=== PATIENT | female | born 1960 | race Caucasian/White ===

== ENCOUNTER → 2016-05-03 | Outpatient (CLI) | payer OTHER ==
--- NOTE | 2016-05-03 08:34 | US ---
EXAMINATION TYPE: US abdomen complete DATE OF EXAM: 05/03/2016 7:16 AM COMPARISON: NONE CLINICAL HISTORY: R10.13 EPIGASTRIC PAIN,R12 HEARTBURN. Pain x 8 months EXAM MEASUREMENTS: Liver Length: 17.1 cm Gallbladder Wall: 0.2 cm CBD: 0.5 cm Spleen: 9.1 cm Right Kidney: 10.3 x 4.9 x 4.8 cm Left Kidney: 10.0 x 3.8 x 4.8 cm Pancreas: wnl Liver: difficult to penetrate Gallbladder: wnl Evidence for sonographic Arce's sign: no CBD: wnl Spleen: wnl Right Kidney: wnl Left Kidney: wnl Upper IVC: wnl Abd Aorta: wnl The pancreas is poorly visualized. Liver is mildly prominent and echogenic and likely fatty infiltrat ed. IMPRESSION: Mild hepatomegaly and fatty infiltration of the liver.
== END | disposition home or self-care (01) ==
LOC: RADUSWWP 06:54
PROVIDERS: ATTEND Family Medicine
DX: K76.0 Fatty (change of) liver, not elsewhere classified (principal); R16.0 Hepatomegaly, not elsewhere classified; R12 Heartburn
CPT/HCPCS: 76700

== ENCOUNTER → 2016-08-16 | Outpatient (CLI) | payer OTHER ==
--- NOTE | 2016-08-16 16:24 | MR ---
EXAMINATION TYPE: MR brain wo con DATE OF EXAM: 08/16/2016 4:10 PM COMPARISON: NONE HISTORY: Memory loss Multiplanar and multispin-echo imaging of the brain was performed . The ventricles, basal cisterns and sulci overlying the cerebral convexities are within normal limits. There is no evidence for midline shift or mass effect. Acute intracranial hemorrhage or extra-axial collection is not evident. Scattered small nonspecific foci of increased signal within the deep and subcortical white matter of both cerebral hemispheres. Differential diagnostic possibilities include demyelinating disease, chron ic migraine headaches, vasculitis as well as sequela of Lyme's disease to name a few. Correlate clini jose luis. No acute edema is identified. The paranasal sinuses and mastoid air cells are well-aerated. IMPRESSION: Scattered small nonspecific foci of increased signal within the deep and subcortical white matter of both cerebral hemispheres. Differential diagnostic possibilities include demyelinating disease, chron ic migraine headaches, vasculitis as well as sequela of Lyme's disease to name a few. Correlate clini jose luis.
== END | disposition home or self-care (01) ==
LOC: RADMRIMAIN 15:25
PROVIDERS: ATTEND Internal Medicine
DX: R90.89 Other abnormal findings on diagnostic imaging of central nervous system (principal); F09 Unspecified mental disorder due to known physiological condition
CPT/HCPCS: 70551

== ENCOUNTER → 2017-06-30 | Outpatient (CLI) | payer OTHER ==
--- NOTE | 2017-06-30 17:34 | US ---
EXAMINATION TYPE: US carotid duplex BILAT DATE OF EXAM: 06/30/2017 COMPARISON: NONE CLINICAL HISTORY: F03.90 DEMENTIA. Memory loss EXAM MEASUREMENTS: RIGHT: Peak Systolic Velocity (PSV) cm/sec ----- Right CCA: 68.6 ----- Right ICA: 63.1 ----- Right ECA: 77.3 ICA/CCA ratio: 0.9 RIGHT: End Diastole cm/sec ----- Right CCA: 21.5 ----- Right ICA: 29.6 ----- Right ECA: 25.8 LEFT: Peak Systolic Velocity (PSV) cm/sec ----- Left CCA: 72.9 ----- Left ICA: 73.8 ----- Left ECA: 85.1 ICA/CCA ratio: 1.0 LEFT: End Diastole cm/sec ----- Left CCA: 21.5 ----- Left ICA: 27.6 ----- Left ECA: 25.0 VERTEBRALS (direction of flow): Right Vertebral: Antegrade Left Vertebral: Antegrade Rhythm: Normal Mild plaque bilateral bifurcations. No evidence of increased velocities or significant stenosis. IMPRESSION: There is antegrade flow in the vertebral arteries. The images and measurements suggest l ess than 20% stenosis in both internal carotid arteries. Criteria for Assigning % of Stenosis / Diameter reduction (Estimation based on the indirect measurements of the internal carotid artery velocities (ICA PSV). 1. Normal (no stenosis)=ICA PSV < 125 cm/s: ratio < 2.0: ICA EDV<40 cm/s. 2. Less than 50% stenosis=ICA PSV < 125 cm/s: ratio < 2.0: ICA EDV<40 cm/s. 3. 50 to 69% stenosis=ICA PSV of 125 to 230 cm/s: ration 2.0 ? 4.0: ICA EDV 40-100 cm/s. 4. Greater than 70% stenosis to near occlusion= ICA PSV > 230 cm/s: ratio > 4.0: ICA EDV > 100 cm/s. 5. Near occlusion= ICA PSV velocities may be low or undetectable: variable ratio and ICA EDV. 6. Total occlusion=unable to detect flow.
== END | disposition home or self-care (01) ==
LOC: RADUSWWP 16:48
PROVIDERS: ATTEND Family Medicine
DX: F03.90 Unspecified dementia, unspecified severity, without behavioral disturbance, psychotic disturbance, mood disturbance, and anxiety (principal)
CPT/HCPCS: 93880

== ENCOUNTER → 2018-09-10 | Outpatient (CLI) | payer OTHER ==
--- NOTE | 2018-09-10 15:27 | MR ---
EXAMINATION TYPE: MR brain wo/w con DATE OF EXAM: 09/10/2018 COMPARISON: CT brain dated 06/08/2015 HISTORY: Other amnesia / Dementia TECHNIQUE: Multiplanar, multisequence images of the brain and brainstem is performed without and with IV contras t, utilizing 7.5 mL intravenous Gadavist . FINDINGS: Diffusion weighted images demonstrate no evidence of a recent infarct or other diffusion ab normality. There is no extra-axial fluid collection. Mild burden nonspecific white matter change is seen as scattered foci of T2/FLAIR hyperintensity within the subcortical and periventricular white ma tter. The largest is seen in the right posterior parietal lobe measuring 6 x 4 mm. The ventricular sy stem and cisternal spaces are normal in size and appearance for this patient age. The brain volume i s age appropriate. Midline structures demonstrate normal morphology. 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 The craniocervical junction appears within normal limits. Post contrast images demonstrate no abnormal enhancement. The dural venous sinuses appear patent. The visualized sinuses are clear and the globes are intact. IMPRESSION: 1. No acute infarct, midline shift or mass effect. 2. No abnormal intracranial enhancement. 3. Mild burden nonspecific white matter change, likely on the basis of chronic microangiopathy with n umerous punctate foci predominating in the subcortical white matter. 4. Cerebral atrophy is not out of proportion for the patient's age in this patient with dementia.
== END | disposition home or self-care (01) ==
LOC: RADMRIMAIN 12:01
PROVIDERS: ATTEND Family Medicine
DX: R90.82 White matter disease, unspecified (principal); G31.9 Degenerative disease of nervous system, unspecified; F03.90 Unspecified dementia, unspecified severity, without behavioral disturbance, psychotic disturbance, mood disturbance, and anxiety
CPT/HCPCS: 70553; A9585

== ENCOUNTER → 2019-01-26 | Outpatient (CLI) | payer OTHER ==
--- NOTE | 2019-01-26 19:52 | CONS ---
CONSULTATION REASON FOR CONSULTATION: Loss of memory. This patient is 58, and despite her young age she is having issues with memory. This is currently being investigated by her primary care physician. The patient was started on Namenda. During a recent conversation she was told that her sleep quality was not the best, and the patient was referred to me for a sleep evaluation. Note that she has no headaches, no loss of consciousness, no syncope, no focal neurological deficit, no history of stroke, no history of Parkinson's, no history of head trauma, substance abuse, falls, ataxia or weakness. It seems that the memory loss is mainly towards recent information. In terms of her sleep, she goes to bed around 10 p.m., wakes up at 6 a.m. in the morning. She does snore. She feels that she is sleeping around 5 to 8 hours per night. At times she is under quite a bit of stress and she cannot initiate her sleep; however, most of the time she is able to generate a good 6 hours of sleep. Her weight is stable at 178 and currently is down to 173. No sleep fragmentation. No history of any falling asleep while driving or performing day-to-day activity. No history of any motor vehicle accident because of feeling drowsy or sleepy. No sleepwalking. No sleeptalking. No sleep paralysis. No hallucinations or cataplexy. PAST MEDICAL HISTORY: 1. Loss of memory. 2. Diabetes. 3. Depression. 4. Hyperlipidemia. 5. Hypertension. 6. Acid reflux. SURGICAL HISTORY: Surgical history includes partial hysterectomy. DRUG ALLERGIES: NOT KNOWN. OUTPATIENT MEDICATION LIST: Outpatient medication list includes: 1. Trulicity injections once a week. 2. Zantac 300 mg p.o. once a day. 3. Metformin 1 gram twice a day. 4. Lipitor 40 mg p.o. daily. 5. Lisinopril/hydrochlorothiazide 20/12.5 one tablet a day. 6. Aspirin 81 mg p.o. daily. 7. Pristiq 100 mg p.o. daily. 8. Prilosec 20 mg p.o. daily. 9. Namenda 10 mg p.o. daily. 10.Trulicity 0.75 mg once a week. 11.Lipitor 40 mg p.o. daily. REVIEW OF SYSTEMS: Fourteen-point review of systems was done. Positive findings were all mentioned above in the history of present illness. Otherwise negative. SOCIAL HISTORY: The patient is a nonsmoker. No history of alcoholism. No history of IV drugs. FAMILY HISTORY: Negative for sleep apnea. Her has JELLY. PHYSICAL EXAMINATION: VITAL SIGNS: BP is 115/81, pulse 105, respirations 16, temperature 98.3, saturation 95% on room air. Height is 5 feet 3 inches, weight 173. Neck size is 14-3/4 inches. Princess Anne score is 2. BMI 30.6. GENERAL APPEARANCE: Calm, comfortable. HEAD: Atraumatic, normocephalic. NECK: Supple. No JVD. No goiter or neck masses. Mallampati class III. LUNGS: Clear to auscultation. HEART: Heart sounds are regular rate and rhythm. Normal S1, S2. No S3, S4. No murmurs. ABDOMEN: Soft, nontender. No organomegaly. EXTREMITIES: No edema. No cyanosis or clubbing. NEUROLOGIC: Awake and alert. There is no focal neurological deficit at this point. Mini mental status exam was not done. IMPRESSION: 1. Memory loss. Exact cause is not clear. Rule out underlying primary neurological disorder. Unlikely to be related to a sleep disorder, although it is worthwhile investigating this patient for any underlying sleep disease by a routine polysomnogram. 2. Diabetes. 3. Hypertension. 4. Hyperlipidemia. 5. History of depression. 6. Acid reflux. 7. Snoring. PLAN: 1. Encourage weight loss. 2. Proceed with a polysomnogram to identify any abnormalities in sleep quality that could contribute to increased tiredness and sleepiness and full concentration and memory loss. My overall suspicion is quite low, and I think the patient may be having an underlying primary neurological disorder contributing to her loss of memory. I would suggest doing a neurologic evaluation in parallel with the sleep evaluation. MMODL / IJN: [id number] /
== END | disposition home or self-care (01) ==
LOC: SLEEP 13:08
PROVIDERS: ATTEND Internal Medicine Critical Care Medicine
DX: R41.3 Other amnesia (principal); E11.9 Type 2 diabetes mellitus without complications; I10 Essential (primary) hypertension; E78.5 Hyperlipidemia, unspecified; K21.9 Gastro-esophageal reflux disease without esophagitis; R06.83 Snoring; Z86.59 Personal history of other mental and behavioral disorders; Z90.711 Acquired absence of uterus with remaining cervical stump; Z79.84 Long term (current) use of oral hypoglycemic drugs; Z79.82 Long term (current) use of aspirin; Z79.899 Other long term (current) drug therapy
CPT/HCPCS: 99211

== ENCOUNTER → 2019-02-19 | Outpatient (CLI) | payer OTHER ==
--- NOTE | 2019-02-19 15:11 | US ---
EXAMINATION TYPE: US abdomen complete DATE OF EXAM: 02/19/2019 COMPARISON: CT July 24, 2015. Abdominal ultrasound 2017 CLINICAL HISTORY: R12 HeartburnFatty liver.. EXAM MEASUREMENTS: Liver Length: 17.8 cm Gallbladder Wall: .2 cm CBD: .4 cm Spleen: 8.4 cm Right Kidney: 9.6 x 4.1 x 4.2 cm Left Kidney: 9.6 x 4.8 x 4.3 cm Pancreas: Tail obscured by overlying bowel gas Liver: Increased attenuation upper limits. Gallbladder: wnl Evidence for sonographic Arce's sign: No CBD: wnl Spleen: wnl Right Kidney: wnl Left Kidney: wnl Upper IVC: wnl Abd Aorta: wnl The visualized liver remains heterogeneously hypoechoic. Evaluation for focal masses suboptimal due to the heterogeneity. The intrahepatic portion of the IVC and proximal abdominal aorta are within nor mal limits. There is no evidence of cholelithiasis. Common bile duct is unremarkable. The visualiz ed portions of the pancreas are homogenous. The spleen is unremarkable. Kidneys are symmetric and f ree of hydronephrosis. No renal lesions are seen. IMPRESSION: Fatty infiltration of liver redemonstrated.
== END | disposition home or self-care (01) ==
LOC: RADUSWWP 14:15
PROVIDERS: ATTEND Family Medicine
DX: K76.0 Fatty (change of) liver, not elsewhere classified (principal)
CPT/HCPCS: 76700

== ENCOUNTER → 2019-09-06 | Outpatient (CLI) | payer OTHER ==
--- NOTE | 2019-09-10 14:27 | MM ---
Reason for exam: screening (asymptomatic). Last mammogram was performed 7 years and 1 month ago. History: Patient is postmenopausal. Physical Findings: A clinical breast exam by your physician is recommended on an annual basis and results should be correlated with mammographic findings. MG 3D Screening Mammo W/Cad Bilateral CC and MLO view(s) were taken. Prior study comparison: July 22, 2012, bilateral digital screening mammo w/CAD. November 06, 2010, mammogram, performed at [facility]. The breast tissue is heterogeneously dense. This may lower the sensitivity of mammography. There is no discrete abnormality. No significant changes when compared with prior studies. ASSESSMENT: Negative, BI-RAD 1 RECOMMENDATION: Routine screening mammogram of both breasts in 1 year.
== END | disposition home or self-care (01) ==
LOC: RADMAMWWP 08:21
PROVIDERS: ATTEND Family Medicine
DX: Z12.31 Encounter for screening mammogram for malignant neoplasm of breast (principal)
CPT/HCPCS: 77063; 77067

== ENCOUNTER → 2020-06-15 | Outpatient (CLI) | payer OTHER ==
[2020-06-15 14:55] LABS: Basophils # (A) 0.04 X 10*3/uL (0.00-0.10); Basophils % (A) 0.7 %; Eosinophils # (A) 0.14 X 10*3/uL (0.04-0.35); Eosinophils % (A) 2.3 %; HCT 41.1 % (37.2-46.3); HGB 13.5 g/dL (12.0-15.0); Lymphocytes # (A) 2.48 X 10*3/uL (0.90-5.00); MCH 29.9 pg (27.0-32.0); MCHC 32.8 g/dL (32.0-37.0); MCV 90.9 fL (80.0-97.0); Mean Platelet Volume 12.2 fL (9.5-12.2); Monocytes # (A) 0.43 X 10*3/uL (0.20-1.00); Monocytes % (A) 7.1 %; Neutrophils # (A) 2.94 X 10*3/uL (1.80-7.70); Neutrophils % (A) 48.6 %; Platelet Count 150 X 10*3/uL (140-440); RBC 4.52 X 10*6/uL (4.10-5.20); RDW 12.7 % (11.5-14.5); WBC 6.05 X 10*3/uL (4.50-10.00)
[2020-06-15 19:20] LABS: Hemoglobin A1C 6.7 % (4.0-6.0)
[2020-06-15 23:37] LABS: T4, Free (Free Thyroxine) 0.9 ng/dL (0.80-1.80)
[2020-06-16 00:07] LABS: African American GFR (CKD) 93.5 (60.0-200.0); Albumin 4.3 g/dL (3.80-4.90); Albumin/Globulin Ratio 2.26 (1.60-3.17); Anion Gap 13.3 mmol/L (4.00-12.00); BUN/Creat Ratio 17.5 Ratio (12.00-20.00); Calcium 9.5 mg/dL (8.7-10.3); Carbon Dioxide 24.7 mmol/L (21.6-31.8); Chol/HDL Ratio 2.47; Globulin 1.9 g/dL (1.6-3.3); LDL Cholesterol,Calculated 63.8 mg/dL (0.0-131.0); Non-African American GFR(CKD) 80.7 (60.0-200.0); Total Bilirubin 0.7 mg/dL (0.2-1.2); Total Protein 6.2 g/dL (6.2-8.2); VLDL Calculation 27.2 mg/dL (5.00-40.00)
== END | disposition home or self-care (01) ==
LOC: LABWHC1 09:06
PROVIDERS: ATTEND Family Medicine
DX: I10 Essential (primary) hypertension (principal); E56.9 Vitamin deficiency, unspecified; E61.0 Copper deficiency; G62.9 Polyneuropathy, unspecified; E11.9 Type 2 diabetes mellitus without complications; J44.9 Chronic obstructive pulmonary disease, unspecified; K21.9 Gastro-esophageal reflux disease without esophagitis; G47.30 Sleep apnea, unspecified; R41.3 Other amnesia
CPT/HCPCS: 36415; 80053; 80061; 82306; 82525; 82550; 82607; 83036; 84425; 84439; 84443; 85025

== ENCOUNTER → 2020-06-21 | Outpatient (CLI) | payer OTHER ==
--- NOTE | 2020-06-21 12:03 | CT ---
EXAMINATION TYPE: CT brain wo/w con DATE OF EXAM: 06/21/2020 COMPARISON: 06/08/2015 INDICATION: Memory loss. DLP: 2262 mGycm, Automated exposure control for dose reduction was used. CONTRAST: None CT of the brain is performed utilizing 3 mm thick sections through the posterior fossa and 3 mm thick sections through the remaining calvarium. Study is performed within 24 hours of arrival to the hosp [facility]. No abnormal hyperdensity is present to suggest an acute intracranial hemorrhage. No mass lesion is evident. No acute infarcts are evident. Ventricles and sulci are appropriate for the patient age. Paranasal sinuses and mastoid air cells within the [id number] are clear. No abnormal enhancement is evident. IMPRESSIONS: 1. Normal pre and postcontrast brain
== END | disposition home or self-care (01) ==
LOC: RADCTMAIN 11:07
PROVIDERS: ATTEND Family Medicine
DX: R41.3 Other amnesia (principal)
CPT/HCPCS: 70470; Q9967

== ENCOUNTER → 2020-12-13 | Outpatient (CLI) | payer OTHER ==
--- NOTE | 2020-12-15 14:04 | MM ---
Reason for exam: screening (asymptomatic). Last mammogram was performed 1 year and 3 months ago. History: Patient is postmenopausal. Physical Findings: A clinical breast exam by your physician is recommended on an annual basis and results should be correlated with mammographic findings. MG 3D Screening Mammo W/Cad Bilateral CC and MLO view(s) were taken. Prior study comparison: September 06, 2019, bilateral MG 3d screening mammo w/cad. July 22, 2012, bilateral digital screening mammo w/CAD. The breast tissue is heterogeneously dense. This may lower the sensitivity of mammography. There are benign appearing round calcifications bilaterally. There is no discrete abnormality. ASSESSMENT: Negative, BI-RAD 1 RECOMMENDATION: Routine screening mammogram of both breasts in 1 year.
== END | disposition home or self-care (01) ==
LOC: RADMAMWWP 11:19
PROVIDERS: ATTEND Internal Medicine Geriatric Medicine
DX: Z12.31 Encounter for screening mammogram for malignant neoplasm of breast (principal)
CPT/HCPCS: 77063; 77067

== ENCOUNTER → 2021-12-14 | Outpatient (CLI) | payer OTHER ==
--- NOTE | 2021-12-14 10:34 | BD ---
EXAMINATION TYPE: Axial Bone Density DATE OF EXAM: 12/14/2021 COMPARISON: 07-22-2012 CLINICAL HISTORY: 61 years year old Female. ICD-10 CODE: Z78.0 MENOPAUSAL STATE N95.1 Post menopausa l symptoms Height: 63.5IN Weight: 205LB FRAX RISK QUESTIONS: Secondary Osteoporosis: RISK FACTORS HISTORY OF: Postmenopausal woman: YES MEDICATIONS: Additional Medications: DIABETES MEDS, BP MEDS, MULTIVITAMIN Additional History: PT STATES SHE HAS MEMORY ISSUES AND ANSWERED QUESTIONS BEST POSSIBLE EXAM MEASUREMENTS: Bone mineral densitometry was performed using the [email or web address] System. Bone mineral density as measured about the Lumbar spine is: ----- L1-L4(G/cm2): 1.400 T Score Values are as follows: ----- L1: 1.0 ----- L2: 0.9 ----- L3: 1.6 ----- L4: 3.3 ----- L1-L4: 1.8 Bone mineral density has: Decreased -5.6% since study of: 07-22-12 Bone mineral density about the R hip (g/cm2): 1.133 Bone mineral density about the L hip (g/cm2): 1.171 T Score values are as follows: -----R Neck: -0.3 -----L Neck: 0.3 -----R Total: 1.0 -----L Total: 1.3 Bone mineral density has: Decreased 6.3% since study of: 07-22-12 FRAX%s: The graph provided illustrates a 6.1% chance for a major osteoporotic fx and a 0.2% chance fo r the hips probability for fx in 10 years time. IMPRESSION: Normal (Values between +1 and -1 indicate normal bone mass). Consider repeating this study in 5 year s or sooner if there is some new clinical indication. NOTE: T-SCORE=SD OF THE YOUNG ADULT MEAN.
--- NOTE | 2021-12-17 08:57 | MM ---
Reason for Exam: Screening (asymptomatic). Last screening mammogram was performed 12 month(s) ago. Patient History: Menarche at age 12. First Full-Term at age 18. Hysterectomy at age 41. Postmenopausal. Risk Values: Estela 5 year model risk: 1.1%. NCI Lifetime model risk: 5.2%. Prior Study Comparison: 07/22/2012 Bilateral Screening Mammogram, [facility]. 09/06/2019 Bilateral Screening Mammogram, [facility]. 12/13/2020 Bilateral Screening Mammogram, [facility]. Tissue Density: The breast tissue is heterogeneously dense. This may lower the sensitivity of mammography. Findings: Analyzed By CAD. There is no suspicious group of microcalcifications or new suspicious mass in either breast. Benign round appearing calcifications bilaterally. No significant change from prior exams. Overall Assessment: Benign, BI-RAD 2 Management: Screening Mammogram of both breasts in 1 year. A clinical breast exam by your physician is recommended on an annual basis and results should be correlated with mammographic findings. Electronically signed and approved by: Isidro Jimenez D.O.
== END | disposition home or self-care (01) ==
LOC: RADMAMWWP 09:34
PROVIDERS: ATTEND Family Medicine
DX: Z12.31 Encounter for screening mammogram for malignant neoplasm of breast (principal); Z78.0 Asymptomatic menopausal state
CPT/HCPCS: 77063; 77067; 77080

== ENCOUNTER → 2022-05-03 | Outpatient (CLI) | payer OTHER ==
--- NOTE | 2022-05-04 06:09 | MR ---
EXAMINATION TYPE: MR knee RT wo con DATE OF EXAM: 05/03/2022 COMPARISON: None HISTORY: Fall, internal derangement of right knee and knee pain Multiplanar multiecho imaging of the right knee performed with no contrast. The anterior and posterior cruciate ligaments are intact. There is a moderate knee joint effusion. Th ere is increased signal in the posterior horn medial meniscus extending to the superior surface. Ther e is some narrowing of the medial joint space. There is medial displacement of the medial meniscus. T here is subcutaneous edema around the knee. No fracture seen. No evidence of focal bone destruction. There is evidence of a 1 cm minimal bone bruise at the base of the tibial spines. There is mild spurr ing of the femoral and tibial condyles. The collateral ligaments are intact. 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 There is a vertical and horizontal tear in the posterior h orn medial meniscus. Knee joint effusion. Small bone bruise at the base of the tibial spines.
== END | disposition home or self-care (01) ==
LOC: RADMRIMAIN 18:51
PROVIDERS: ATTEND Family Medicine
DX: M17.11 Unilateral primary osteoarthritis, right knee (principal); M23.221 Derangement of posterior horn of medial meniscus due to old tear or injury, right knee; M25.461 Effusion, right knee

== ENCOUNTER → 2022-09-11 | Outpatient (CLI) | payer OTHER ==
--- NOTE | 2022-09-11 16:45 | P.SLEEP ---
History of Present Illness DATE: 09/11/2022 CONSULTATION/NEW PATIENT EVALUATION HISTORY OF PRESENT ILLNESS/SLEEP-WAKE EVALUATION: 62-year-old lady had been evaluated in the sleep center for obstructive sleep apnea hypopnea syndrome. Patient has history of mild obstructive sleep apnea hypopnea syndrome diagnosed in February 2019. For different reason at that time patient did not receive treatment with CPAP. SLEEP SCHEDULE: Usually sleep schedule 910 PM until 6-7 AM 7 days a week. FALLING ASLEEP: Usually no problems with falling asleep. DURING SLEEP: Patient has loud snoring and witnessed episodes of stop breathing during the sleep. Patient wakes up from sleep with her grinding teeth, heartburn. Positive history of sleep talking. No history of hypnogogical hallucinations, sleep paralysis, or cataplexy. DURING THE DAY/WAKE STATE: Patient has difficulties to place attention during the day, has problems with memory, concentration, irritability, depression. Gilmer sleepiness scale is 2. Usually patient doesn't take naps, may take 1 rest period uring the day. PAST MEDICAL HISTORY: Hypertension, hyperlipidemia, asthma, acid reflux, diabetes mellitus. PAST SURGICAL HISTORY: Partial hysterectomy, right ankle surgery. MEDICATIONS: Losartan/hydrochlorothiazide 100/12.5 mg once a day, does on 15 mg once a day, bupropion 150 mg once a day, metformin 500 mg twice a day, donepezil 10 mg once a day. SOCIAL HISTORY: Very short smoking in the past, alcohol consumption none at the present time. FAMILY HISTORY: Hypertension, hyperlipidemia, diabetes, ulcers. REVIEW OF SYSTEMS: Loud snoring, awakenings from sleep. No fevers. No double vision. No recent chest pain. No shortness of breath. No abdominal pain. No bleeding episodes. No blood in urine. No seizure episodes. PHYSICAL EXAMINATION: GENERAL: A pleasant patient without any distress. VITAL SIGNS: BP 128/82 , HR 86 , RR 18 , weight 191.0 pounds, height 5 foot 2.5 inches, body mass index 34.3 . HEENT: PERRLA, EOMI. Evaluation of oropharynx showed tongue protrudes midline, low position of soft palate Mallampati 4. NECK: Supple. No JVD. Thyroid is not palpable. 15-1/3 inches in circumference. LUNGS: Clear to percussion and to auscultation. Good air exchange. No wheezing or rhonchi. HEART: S1, S2 regular. No murmurs, gallops or rubs. ABDOMEN: Soft and nontender. Bowel sounds are present. No organomegaly appreciated. EXTREMITIES: No clubbing or cyanosis. DETAIL MAKER AND FITTER: Awake, alert, and oriented x3. Cranial nerves 2 to 7 intact. There is no f asciculation or atrophy noted. No focal deficits observed. ASSESSMENT: 1. Loud snoring, awakenings from sleep, extremely low position of soft palate, history of obstructive sleep apnea hypopnea syndrome in the past. Obstructive sleep apnea hypopnea syndrome. 2. Mild obesity BMI 34.3. 3. Hypertension. 4. Diabetes mellitus. 5 hyperlipidemia. 6 . Acid reflux. 7. Memory problems. 8. Status post partial hysterectomy. PLAN: 1. Polysomnography for evaluation of patient's breathing during sleep. 2. CPAP/BiPAP titration if sleep study confirms obstructive sleep apnea- hypopnea syndrome. 3. Preferable position during sleep on the side. 4. No driving if patient feels any sleepiness. Patient is aware of civil and criminal liability for unsafe driving. 5. Sleep hygiene with regular sleep time for at least 7.5-8 hours. 6. Watching and losing weight. Thank you very much for referring this patient for consultation. Sincerely, Keaton Willams MD, PhD, FAASM. Diplomat of [place] [employer], Sleep Medicine Board by [place] [employer] [place] [employer] Poison Information Specialist of [facility] [place] Past Medical History Past Medical History: Asthma, Diabetes Mellitus, GERD/Reflux, Hyperlipidemia, Hypertension Additional Past Medical History / Comment(s): NIDDM type II, seasonal asthma, UTIs. History of Any Multi-Drug Resistant Organisms: None Reported Past Surgical History: Hysterectomy, Tonsillectomy Additional Past Surgical History / Comment(s): Bilateral cataract removals with lens implants. Past Anesthesia/Blood Transfusion Reactions: No Reported Reaction Additional Past Anesthesia/Blood Transfusion Reaction / Comment(s): Pt has never received blood. Past Psychological History: Anxiety, Depression Additional Psychological History / Comment(s): Pt states her medication for her anxiety/depression are working well. She is independent. She drives. Past Alcohol Use History: None Reported Additional Past Alcohol Use History / Comment(s): Pt states she smoked for 1 yr. from [id number]. Past Drug Use History: None Reported - Past Family History Father Family Medical History: Dementia Additional Family Medical History / Comment(s): Father is alive and is 73 or 74yrs old. Medications and Allergies Home Medications Medication Instructions Recorded Confirmed Type Aspirin EC [Ecotrin Low Dose] 81 mg PO HS 06/08/15 07/21/15 History Atorvastatin [Lipitor] 40 mg PO HS 06/08/15 07/21/15 History Calcium Carbonate/Vitamin D3 1 tab PO DAILY 06/08/15 07/21/15 History [Calcium 600-Vit D3 400 Tablet] FLUoxetine HCL [PROzac] 60 mg PO DAILY 06/08/15 07/21/15 History metFORMIN HCL [metFORMIN HCL ER] 1,000 mg PO AC-BID 06/08/15 07/21/15 History sitaGLIPtin [Januvia] 50 mg PO DAILY 06/08/15 07/21/15 History Lisinopril-Hctz 20-12.5 mg 1 tab PO DAILY #0 07/21/15 07/21/15 Rx [Zestoretic 20-12.5] Omeprazole [PriLOSEC] 40 mg PO AC-BRKFST #14 cap 07/21/15 Rx Allergies Allergy/AdvReac Type Severity Reaction Status Date / Time No Known Allergies Allergy Verified 07/21/15 12:03 Sleep Note - Sleep Note Sleep Note: Temperature: Pulse Rate: Respiratory Rate: Blood Pressure: SpO2: Height: Weight: BMI: Neck Circumference:
== END ==
LOC: 3 N SLEEP 14:59
PROVIDERS: ATTEND Internal Medicine
DX: G47.33 Obstructive sleep apnea (adult) (pediatric) (principal); E66.9 Obesity, unspecified; E11.9 Type 2 diabetes mellitus without complications; E78.5 Hyperlipidemia, unspecified; K21.9 Gastro-esophageal reflux disease without esophagitis; R41.3 Other amnesia; J45.909 Unspecified asthma, uncomplicated; Z87.891 Personal history of nicotine dependence; Z90.710 Acquired absence of both cervix and uterus; Z68.34 Body mass index [BMI] 34.0-34.9, adult; Z79.84 Long term (current) use of oral hypoglycemic drugs; Z79.899 Other long term (current) drug therapy
CPT/HCPCS: 99211

== ENCOUNTER 2023-02-04 19:30 | Outpatient (CLI) | payer OTHER ==
--- NOTE | 2023-02-12 16:39 | P.PCN ---
Description of Procedure: CLINICAL: Titration with positive air pressure has been done for correction of respiratory abnormalities during sleep. DESCRIPTION OF PROCEDURE: The standard montage for clinical polysomnography included the electroencephalogram, the electrocardiogram, the mentalis surface electromyography and Lead II cardiography. The respiratory battery consisted of measurements of nasal /buccal air flow, pressure transducer measurements from the nose, thoracic and /or abdominal effort and intercostal surface electromyography. Video monitoring has been done to check for any parasomnia events. Nocturnal oxyhemoglobin saturations were obtained by finger oximetry. Step-glaser titration with positive airway pressure was utilized to control respiratory events. Raw data of sleep recording has been reviewed and is adequate. RESULTS: Sleep efficiency was close to normal 86.7 %. Latency to sleep onset was normal 18.5 minutes.]. Sleep architecture showed stage N1 was slightly increased to 8.5 %, Delta sleep was absent 0 %, REM sleep was practically absent 0.2 %. Heart rate was minimum 70 BPM, maximum 79 BPM, average 74 BPM. EMG showed 0 periodic limb movements per hour. PAP titration have been done with CPAP up to the pressure 14 cm H2O. Patient had problems with CPAP, switched to BPAP. BPAP titrated up to 16/12 cm H2O. The best results were at the pressure 16/12 cm H2O. Apnea hypopnea index reduced to 0. IMPRESSION: 1. Obstructive sleep apnea hypopnea syndrome mostly on controle with BPAP treatment. 2. No significant periodic limb movements have been documented. Please see other impressions from consultation. PLAN: 1. The patient will have treatment with AutoBPAP equipment with maximal inspiratory pressure 17, minimal expiratory pressure 6, pressure-support 4 cm H2O and should use it every night for the whole night. 2. Watching and losing weight. 3. Sleep hygiene with regular time in bed for at least 8 hours. 4. No driving if feeling any sleepiness. 5. I will see the patient for follow up visit to explain the results of the test, recommendations, check compliance with treatment and make any necessary adjustment related to mask fitting, pressure and humidification. Thank you very much for allowing me to participate in the management of your patient. Sincerely, Keaton Willams MD, PhD, FAASM Diplomat of [place] [employer] Sleep Medicine Board of [place] [employer] P[employer] of [facility] [place]
== END 2023-02-05 05:55 | disposition home or self-care (01) ==
LOC: 3 N SLEEP 19:30
PROVIDERS: ATTEND Internal Medicine
DX: G47.33 Obstructive sleep apnea (adult) (pediatric) (principal); Z87.891 Personal history of nicotine dependence
CPT/HCPCS: 95811

== ENCOUNTER → 2023-04-23 | Outpatient (CLI) | payer OTHER ==
[2023-04-23 12:18] VITALS: BP 118/75; PULSE 95; RESP 16; TEMP 98.3
--- NOTE | 2023-04-23 12:30 | P.PN ---
Subjective DATE: 04/23/2023 FOLLOW UP VISIT. Patient with obstructive sleep apnea hypopnea syndrome return to sleep center for follow-up visit. Recently patient had sleep study which documented obstructive sleep apnea hypopnea syndrome. Patient was initiated on PAP therapy and today is first visit after treatment was started. Patient was able to use PAP equipment every night for the whole night. The patient does not have significant problems with the mask, PAP pressure and humidification. Ferguson sleepiness scale is 3. I checked information from PAP unit. PAP unit pressure maximal inspiratory pressure 17, minimal expiratory pressure 6, pressure support 4, average pressure 16.6/12.6 cm H2O. Usage is 100% and 87% for more then 4 hours, average 6.5 hours per night. Leak is borderline 20.9 l/m, which is in acceptable range. Apnea Hypopnea Index is increased to 11.5. MEDICATIONS:1. Losartan/hydrochlorothiazide 100/12.5 mg once a day 2. Metformin 500 mg twice a day 3. Donepezil 10 mg once a day 4. Bupropion 150 mg once a day During physical exam: GENERAL: A pleasant patient without any distress. VITAL SIGNS: See below. HEENT: PERRLA, EOMI.low position of soft palate, Mallapati[] . NECK: Supple. No JVD. LUNGS: Clear to percussion and to auscultation. Good air exchange. No wheezing or rhonchi. HEART: S1, S2 regular. ABDOMEN: Soft and nontender.[] EXTREMITIES: No clubbing or cyanosis. FIBERGLASS [employer]AT PARTS FINISHER: Awake, alert, and oriented x3. No focal deficit. Impressions: 1. Obstructive sleep apnea-hypopnea syndrome. Patient demonstrated great compliance with treatment, benefiting from treatment, but apnea-hypopnea index still increased above normal range. 2. Hypertension. 3. Diabetes mellitus. 4. Acid reflux. 5. History of memory problems. 6. Status post partial hysterectomy. 7. Mild obesity. I changed pressure in BiPAP unit to maximal inspiratory pressure was increased to 19 cm of water. Plan: 1. Continue using PAP equipment every night for the whole night. 2. To change air filter at least 1-2 times per month. 3. PAP unit should stay lower then position of the head. 4. Advised patient to remove all remaining water from humidifier canister daily and make it dry after each usage. Refill canister with fresh distilled water before each usage. 5. Sleep hygiene with regular time in bed for at least 8 hours. 6. Precautions related to driving. No driving if feel any sleepiness. 7. I will maintain prescription for PAP supplies including mask, tube, filters. 8. Follow up visit in 3 months or earlier if patient has any problems. 9. Watching weight. Thank you very much for allowing me to participate in the management of your patient. Keaton Willams MD, PhD, FAASM. Diplomat of [place] [employer], Sleep Medicine Board by [place] [employer] Manager of [facility] [place] Objective - Vital Signs Vital signs: Vital Signs Temp 98.3 F 04/23/23 11:53 Pulse 95 04/23/23 11:53 Resp 16 04/23/23 11:53 BP 118/75 04/23/23 11:53 Pulse Ox 95 04/23/23 11:53 FiO2 Intake & Output 04/22/23 04/23/23 04/23/23 18:59 06:59 18:59 Weight 87.543 kg
== END ==
LOC: 3 N SLEEP 11:34
PROVIDERS: ATTEND Internal Medicine
DX: G47.33 Obstructive sleep apnea (adult) (pediatric) (principal); E11.9 Type 2 diabetes mellitus without complications; I10 Essential (primary) hypertension; E66.9 Obesity, unspecified; K21.9 Gastro-esophageal reflux disease without esophagitis; Z90.710 Acquired absence of both cervix and uterus; Z99.89 Dependence on other enabling machines and devices; Z79.84 Long term (current) use of oral hypoglycemic drugs; Z86.69 Personal history of other diseases of the nervous system and sense organs; Z79.899 Other long term (current) drug therapy; Z79.82 Long term (current) use of aspirin; Z87.891 Personal history of nicotine dependence
CPT/HCPCS: 99212

== ENCOUNTER → 2023-06-12 | Outpatient (CLI) | payer OTHER ==
--- NOTE | 2023-06-16 19:19 | MM ---
Reason for Exam: Screening (asymptomatic). Last mammogram was performed 1 year(s) and 6 month(s) ago. Patient History: Menarche at age 12. First Full-Term at age 18. Hysterectomy at age 41. Postmenopausal. Patient has history of breast feeding. Risk Values: Estela 5 year model risk: 1.1%. NCI Lifetime model risk: 5.0%. Prior Study Comparison: 07/22/2012 Bilateral Screening Mammogram, [facility]. 09/06/2019 Bilateral Screening Mammogram, [facility]. 12/13/2020 Bilateral Screening Mammogram, [facility]. 12/14/2021 Bilateral MG 3D screening mammo w/cad, [facility]. Tissue Density: There are scattered areas of fibroglandular density. Findings: Analyzed By CAD. Chronic nodularity on the right. There is no suspicious group of microcalcifications or new suspicious mass in either breast. Overall Assessment: Benign, BI-RAD 2 Management: Screening Mammogram of both breasts in 1 year. . Patient should continue monthly self-breast exams. A clinical breast exam by your physician is recommended on an annual basis. This exam should not preclude additional follow-up of suspicious palpable abnormalities. Note on Estela scores and lifetime risk: 1. A Estela score greater than 3% is considered moderate risk. If this is the case, consider specialist referral to assess eligibility for a risk reducing agent. 2. If overall lifetime risk for the development of breast cancer is 20% or higher, the patient may qualify for future screening with alternating mammogram and breast MRI. Electronically signed and approved by: Darrell Banerjee M.D. Radiologist
== END | disposition home or self-care (01) ==
LOC: RADMAMWWP 10:42
PROVIDERS: ATTEND Family Medicine
DX: Z12.31 Encounter for screening mammogram for malignant neoplasm of breast (principal); Z78.0 Asymptomatic menopausal state
CPT/HCPCS: 77063; 77067

== ENCOUNTER → 2023-07-02 | Outpatient (CLI) | payer OTHER ==
--- NOTE | 2023-07-08 13:45 | MR ---
EXAMINATION TYPE: MR brain wo/w con DATE OF EXAM: 07/02/2023 COMPARISON: 04/13/2022 HISTORY: Memory loss especially short term, Compare to previous MRI in 2019 CONTRAST: Performed utilizing 9 mL intravenous Gadavist gadolinium contrast. TECHNIQUE: Multiplanar, multiecho imaging on a 3.0 Monet magnet is performed through the brain. Stud y is performed within 24 hours of arrival to the hospital. The craniovertebral junction is normal. The pituitary is normal. Diffusion-weighted imaging is performed. No abnormal hyperintensity is present to suggest an acute i ntracranial infarct or acute ischemic change. There are a few scattered punctate areas of hyperintensity on T2 and Inversion Recovery weighted sequ ences within subcortical and deep white matter which are non-specific but can be related to microvasc ular ischemic changes. Ventricles and sulci are appropriate for the patient age. No abnormal enhancement is evident. IMPRESSION: 1. Nonspecific scattered small deep white matter changes, likely on the basis of chronic white matter ischemic change. Findings appear stable from comparison.
== END | disposition home or self-care (01) ==
LOC: RADMRIMAIN 19:50
PROVIDERS: ATTEND Family Medicine
DX: R90.82 White matter disease, unspecified (principal); R41.3 Other amnesia
CPT/HCPCS: 70553; A9585

== ENCOUNTER → 2023-07-30 | Outpatient (CLI) | payer OTHER ==
[2023-07-30 11:45] VITALS: BP 112/79; PULSE 89; RESP 16; TEMP 97.9
--- NOTE | 2023-07-30 12:04 | P.PROGSL ---
Subjective DATE: 07/30/2023 FOLLOW UP VISIT. Patient with obstructive sleep apnea hypopnea syndrome return to sleep center for follow-up visit. Information from previous visit have been reviewed. Patient is using PAP equipment every night for the whole night, getting PAP supplies in time. The patient does not have significant problems with the mask, PAP unit and humidification. [place] sleepiness scale is 4, which is normal. I checked information from PAP unit. PAP unit pressure maximal inspiratory pressure 19, minimal expiratory pressure 6, pressure support 4, average pressure 16.2/12.2 cm H2O. Usage is 90% for more then 4 hours, average 4.3 hours per night. Leak is increased to 53 l/m. Apnea Hypopnea Index is 7.9, which is slightly above normal but showed improvements comparing with the previous visit when it was 11.5, after I adjusted pressure. MEDICATIONS: Please see below During physical exam: GENERAL: A pleasant patient without any distress. VITAL SIGNS: Please see below, weight 184.4 pounds, BMI 33.1. HEENT: PERRLA, EOMI.low position of soft palate, Mallapati[] . NECK: Supple. No JVD. LUNGS: Clear to percussion and to auscultation. Good air exchange. No wheezing or rhonchi. HEART: S1, S2 regular. ABDOMEN: Soft and nontender.[] EXTREMITIES: No clubbing or cyanosis. DRUM TENDER: Awake, alert, and oriented x3. No focal deficit. Impressions: 1. Obstructive sleep apnea-hypopnea syndrome. Patient demonstrated good compliance with treatment, benefiting from treatment. 2. Hypertension. 3. Diabetes mellitus. 4. Acid reflux. 5. History of memory problems. 6. Mild obesity. 7. Status post partial hysterectomy. Plan: 1. Continue using PAP equipment every night for the whole night. Patient will try it AirFit F40 mask, we gave her this type of mask. 2. To change air filter at least 1-2 times per month. 3. PAP unit should stay lower then position of the head. 4. Advised patient to remove all remaining water from humidifier canister daily and make it dry after each usage. Refill canister with fresh distilled water before each usage. 5. Sleep hygiene with regular time in bed for at least 8 hours. 6. Precautions related to driving. No driving if feel any sleepiness. 7. I will maintain prescription for PAP supplies including mask, tube, filters. 8. Follow up visit in 6 months or earlier if patient has any problems. 9. Watching weight. Thank you very much for allowing me to participate in the management of your patient. Keaton Willams MD, PhD, FAASM. Diplomat of [place] [employer], Sleep Medicine Board by [place] [employer] Care Tech of [facility] [place] Objective - Vital Signs Vital Signs: Vital Signs Temp 97.9 F 07/30/23 11:42 Pulse 89 07/30/23 11:42 Resp 16 07/30/23 11:42 BP 112/79 07/30/23 11:42 Pulse Ox 98 07/30/23 11:42 FiO2 Intake & Output 07/29/23 07/30/23 07/30/23 18:59 06:59 18:59 Weight 83.461 kg Home Medications: Home Medications Medication Instructions Recorded Confirmed Type Aspirin EC [Ecotrin Low Dose] 81 mg PO HS 06/08/15 04/23/23 History Atorvastatin [Lipitor] 40 mg PO HS 06/08/15 04/23/23 History Calcium Carbonate/Vitamin D3 1 tab PO DAILY 06/08/15 04/23/23 History [Calcium 600-Vit D3 400 Tablet] FLUoxetine HCL [PROzac] 60 mg PO DAILY 06/08/15 04/23/23 History metFORMIN HCL [metFORMIN HCL ER] 1,000 mg PO AC-BID 06/08/15 07/30/23 History sitaGLIPtin [Januvia] 50 mg PO DAILY 06/08/15 04/23/23 History Lisinopril-Hctz 20-12.5 mg 1 tab PO DAILY #0 07/21/15 04/23/23 Rx [Zestoretic 20-12.5] Omeprazole [PriLOSEC] 40 mg PO AC-BRKFST #14 cap 07/21/15 04/23/23 Rx Donepezil [Aricept] 10 mg PO HS 07/30/23 07/30/23 History Losartan/Hydrochlorothiazide 1 tab PO DAILY 07/30/23 07/30/23 History [Losartan-Hctz 100-12.5 mg Tab] buPROPion HCL [buPROPion HCL SR] 150 mg PO Q12HR 07/30/23 07/30/23 History
== END ==
LOC: 3 N SLEEP 11:26
PROVIDERS: ATTEND Internal Medicine
DX: G47.33 Obstructive sleep apnea (adult) (pediatric) (principal); I10 Essential (primary) hypertension; E11.9 Type 2 diabetes mellitus without complications; K21.9 Gastro-esophageal reflux disease without esophagitis; E66.9 Obesity, unspecified; Z99.89 Dependence on other enabling machines and devices; Z86.59 Personal history of other mental and behavioral disorders; Z90.711 Acquired absence of uterus with remaining cervical stump; Z79.899 Other long term (current) drug therapy; Z79.84 Long term (current) use of oral hypoglycemic drugs; Z87.891 Personal history of nicotine dependence; Z68.33 Body mass index [BMI] 33.0-33.9, adult
CPT/HCPCS: 99212

== ENCOUNTER → 2024-05-24 | Outpatient (CLI) | payer OTHER ==
--- NOTE | 2024-05-24 15:29 | XR ---
EXAMINATION TYPE: XR wrist complete LT DATE OF EXAM: 05/24/2024 2:14 PM COMPARISON: None CLINICAL INDICATION: Female, 63 years old with history of M65.942 UNSPECIFIED SYNOVITIS AND TENOSYNOV ITIS, L; PHH, pain TECHNIQUE: 4 views FINDINGS: Mild soft tissue swelling about the wrist. The radiocarpal and distal radioulnar joint as well as the midcarpal compartment appear intact. No marginal erosions are seen. There is degenerative spurring a t the first CMC joint and mild joint space narrowing. No acute fracture, subluxation, dislocation. IMPRESSION: 1. Mild soft tissue swelling at the wrist. 2. 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 3. No acute osseous abnormality seen. [facility], , 05/24/2024 3:27 PM
== END | disposition home or self-care (01) ==
LOC: RADXRMAIN 14:00
PROVIDERS: ATTEND Family Medicine
DX: M18.12 Unilateral primary osteoarthritis of first carpometacarpal joint, left hand (principal); M65.942 Unspecified synovitis and tenosynovitis, left hand

== ENCOUNTER → 2024-06-09 | Outpatient (CLI) | payer OTHER ==
--- NOTE | 2024-06-10 19:18 | MR ---
EXAMINATION TYPE: MR brain wo/w con DATE OF EXAM: 06/09/2024 7:34 PM COMPARISON: 07/02/2023. CLINICAL INDICATION: Female, 63 years old with history of R41.3 MEM LOSS G31.84 MILD COGNITIVE IMPAIR MENT; PHH, Memory loss, mild cognitive impairment. TECHNIQUE: Multi planar, multi sequence imaging was performed through the brain including: T1, T2, In version recovery, susceptibility weighted imaging and gradient echo imaging and Diffusion weighted im aging. The patient was then given intravenous contrast and multi planar, T1 fat-saturation images wer e obtained. IV Contrast: 7.5 mL Gadobutrol FINDINGS: Mild cerebral atrophy with proportional dilation of ventricular system. Diffusion-weighted imaging s hows no evidence of restricted diffusion to suggest acute/subacute infarct. Intracranial arterial diogenes w voids are maintained. Midline structures show no abnormality. Scattered foci of high T2 signal inte nsity are seen within the periventricular white matter. The susceptibility weighted images do not rev eal any evidence for micro-hemorrhage. After administration of gadolinium, no abnormal enhancement is seen. The bone marrow signal is within normal limits. Paranasal sinuses and mastoid air cells: No significant paranasal sinus disease. Visualized orbits: Bilateral aphakia IMPRESSION: 1. No evidence of intracranial mass, acute/subacute infarct, or abnormal enhancement. 2. Nonspecific white matter changes, likely related to small vessel ischemic disease. [facility], , 06/10/2024 7:16 PM
== END | disposition home or self-care (01) ==
LOC: RADMRIMAIN 18:19
PROVIDERS: ATTEND Psychiatry & Neurology Neurology
DX: R90.82 White matter disease, unspecified (principal); G31.84 Mild cognitive impairment of uncertain or unknown etiology
CPT/HCPCS: 70553; A9585

== ENCOUNTER 2024-08-25 08:24 | Day surgery (SDC) | payer OTHER ==
[2024-08-25] MEDS: IV FLUID CONTINUATION 1,000 ML IV ONE (08:43)
[2024-08-25 08:57] LABS: Glucose,Whole Blood 83 mg/dL (70-110)
[2024-08-25 08:58] VITALS: TEMP 97.1
[2024-08-25] MEDS: LACTATED RINGERS 1,000 ML IV SCH (09:01)
[2024-08-25] MEDS ORDERED: PROPOFOL 10 MG/ML 20 ML VIAL IV ONE (09:34)
--- NOTE | 2024-08-25 10:03 | P.PCN ---
Date of Procedure: 08/25/24 Procedure(s) Performed: BRIEF HISTORY: Patient is a 64-year-old pleasant white female scheduled for an elective colonoscopy as a part of screening for colon cancer/positive Cologuard. PROCEDURE PERFORMED: Colonoscopy with snare polypectomy. PREOPERATIVE DIAGNOSIS: Screening for colon cancer/positive Cologuard. IV sedation per Anesthesia. PROCEDURE: After informed consent was obtained, the patient, was brought into the endoscopy unit. IV sedation was administered by Anesthesia under continuous monitoring. Digital rectal examination was normal. Initially the Olympus CF-160 flexible video colonoscope was then inserted in the rectum, gradually advanced into the cecum without any difficulty. Careful examination was performed as the scope was gradually being withdrawn. Ileocecal valve and the appendiceal orifice were visualized and appeared normal. Prep was excellent. Mucosa of the cecum, ascending colon, transverse colon appeared. In the descending colon there was a 5 mm sessile polyp removed by cold snare polypectomy. Scattered somewhat diverticulosis., descending colon, sigmoid colon, and rectum appeared normal. Retroflexion was performed in the rectum and no lesions were seen. The patient tolerated the procedure well. IMPRESSION: 5 mm descending colon polyp status post cold snare polypectomy Scattered sigmoid diverticulosis RECOMMENDATIONS: Findings of this examination were discussed with the patient as well as her family. She was advised to follow-up with the biopsy results. The biopsy reveals adenoma she can have repeat colonoscopy in 5 years..
[2024-08-25 10:26] VITALS: BP 129/75; PULSE 72; RESP 14
== END 2024-08-25 10:53 | disposition home or self-care (01) ==
LOC: ORWHC2ENDO 08:24
PROVIDERS: ATTEND Internal Medicine Gastroenterology
DX: D12.4 Benign neoplasm of descending colon (principal); K57.30 Diverticulosis of large intestine without perforation or abscess without bleeding; J45.909 Unspecified asthma, uncomplicated; E11.9 Type 2 diabetes mellitus without complications; I10 Essential (primary) hypertension; E78.5 Hyperlipidemia, unspecified; F41.9 Anxiety disorder, unspecified; F32.A Depression, unspecified; G47.33 Obstructive sleep apnea (adult) (pediatric); Z79.84 Long term (current) use of oral hypoglycemic drugs; Z79.899 Other long term (current) drug therapy
CPT/HCPCS: 88305; 45385; J2704